=== PATIENT | male | born 1980 | race African-American/Black ===

== ENCOUNTER 2021-08-05 14:52 | Emergency (ER) | payer SELFPAY ==
[~2021-08-05] VITALS: Ht 170.2 cm; Wt 111.0 kg
[2021-08-05 15:01] VITALS: BP 157/84
== END 2021-08-05 18:10 | disposition home or self-care (01) ==
LOC: ER 14:52
DX: U07.1 COVID-19 (principal); R03.0 Elevated blood-pressure reading, without diagnosis of hypertension
CPT/HCPCS: 87426; 99283